=== PATIENT | female | born 1960 | race Caucasian/White ===

== ENCOUNTER → 2016-11-11 | Outpatient (CLI) | payer BC | LOC: MC.RAD 10:40 | DX: Z12.31 Encounter for screening mammogram for malignant neoplasm of breast (principal) ==

== ENCOUNTER → 2017-11-19 | Outpatient (CLI) | payer BC | LOC: MC.RAD 12:58 | DX: Z12.31 Encounter for screening mammogram for malignant neoplasm of breast (principal) ==

== ENCOUNTER → 2018-06-18 | Outpatient (CLI) | payer BC | LOC: COL.RAD 13:20 | DX: N94.89 Other specified conditions associated with female genital organs and menstrual cycle (principal); J98.6 Disorders of diaphragm; Z90.49 Acquired absence of other specified parts of digestive tract | CPT/HCPCS: Q9967 ==

== ENCOUNTER → 2018-11-20 | Outpatient (CLI) | payer BC | LOC: MC.RAD 14:26 | DX: Z12.31 Encounter for screening mammogram for malignant neoplasm of breast (principal) ==

== ENCOUNTER → 2019-06-02 | Outpatient (CLI) | payer BC ==
[~2019-06-02] VITALS: Ht 161.3 cm; Wt 120.2 kg
[~2019-06-02] MED LIST: ABILIFY DISCMEL10 M1 PO; ANTIVERT 25MG25 MG PO; ASPIRIN E.C. 8181 MG PO; BUSPAR10 MG PO; CLARITIN 1010 MG/TAB PO; COENZYME Q1050 MG PO; CYMBALTA 60MG60 MG PO; EFFER-K10 MEQ PO; EPA FISH OIL1 SGL PO; FIBER GUMMIES2.5 GM PO; FLONASEALLERGY NS; GLUCOPHAGE XR500 M1 PO; GLUCOSAMINE 1000 PO; HCTZ 25MG TAB25 MG PO; LIPITOR20 MG PO; MASON NATURAL325 MG PO; MOBIC 7.5MG7.5 MG PO; MULTIPLE VITAMI1 TA5 PO; MULTIVITAMIN SEN PO; NAPROSYN 2250 MG/TAB PO; NATURAL MAGNES200 MG PO; NATURE'S BLEND500 M1 PO; NEURONTIN600 MG/TAB PO; OSCAL 500 TAB500 MG PO; PRILOSEC 20MG20 MG PO; RT ADVAIR 228 DISKUS IH; SINGULAIR 110 MG/TAB PO; STOOL SOFTENER100 M2 PO; VENTOLIN0.09 MG IH; VITAMIN C500 MG PO; VITAMIN D31000 I1 PO; VOLTAREN GEL 1%1 TU TP; ZANTAC 150MG T150 MG PO; ZESTRIL2.5 MG PO
[2019-06-02 08:32] VITALS: BP 156/76; PULSE 92
== END ==
LOC: LIGHT 08:03
DX: E88.81 Metabolic syndrome and other insulin resistance (principal); G47.33 Obstructive sleep apnea (adult) (pediatric); M15.9 Polyosteoarthritis, unspecified; E66.01 Morbid (severe) obesity due to excess calories; Z68.42 Body mass index [BMI] 45.0-49.9, adult; Z71.3 Dietary counseling and surveillance
CPT/HCPCS: G0463

== ENCOUNTER → 2019-06-15 | Outpatient (CLI) | payer BC | LOC: LIGHT 10:27 | DX: E88.81 Metabolic syndrome and other insulin resistance (principal); G47.33 Obstructive sleep apnea (adult) (pediatric); M15.9 Polyosteoarthritis, unspecified; E66.01 Morbid (severe) obesity due to excess calories; Z68.41 Body mass index [BMI] 40.0-44.9, adult; Z71.3 Dietary counseling and surveillance ==

== ENCOUNTER → 2019-06-21 | Outpatient (CLI) | payer BC | LOC: LIGHT 15:57 | DX: E88.81 Metabolic syndrome and other insulin resistance (principal); G47.33 Obstructive sleep apnea (adult) (pediatric); M15.9 Polyosteoarthritis, unspecified; E66.01 Morbid (severe) obesity due to excess calories; Z68.42 Body mass index [BMI] 45.0-49.9, adult; Z71.3 Dietary counseling and surveillance ==

== ENCOUNTER → 2019-07-06 | Outpatient (CLI) | payer BC ==
[~2019-07-06] VITALS: Ht 161.3 cm; Wt 119.7 kg
[2019-07-06 15:45] VITALS: BP 130/86; PULSE 80
== END ==
LOC: LIGHT 15:41
DX: G89.29 Other chronic pain (principal); M15.9 Polyosteoarthritis, unspecified; F32.9 Major depressive disorder, single episode, unspecified; Z68.42 Body mass index [BMI] 45.0-49.9, adult; Z71.3 Dietary counseling and surveillance; E66.01 Morbid (severe) obesity due to excess calories
CPT/HCPCS: G0463

== ENCOUNTER → 2019-12-24 | Outpatient (CLI) | payer BC ==
[~2019-12-24] MED LIST changes: +PHENTERMINE15 MG PO
== END ==
LOC: MC.RAD 11-30 15:00
DX: Z12.31 Encounter for screening mammogram for malignant neoplasm of breast (principal)

== ENCOUNTER → 2020-12-27 | Outpatient (CLI) | payer BC | LOC: MC.RAD 14:16 | DX: Z12.31 Encounter for screening mammogram for malignant neoplasm of breast (principal) ==

== ENCOUNTER → 2022-01-31 | Outpatient (CLI) | payer BC | LOC: MC.RAD 15:57 | DX: Z12.31 Encounter for screening mammogram for malignant neoplasm of breast (principal) ==

== ENCOUNTER → 2022-02-20 | Outpatient (CLI) | payer BC | LOC: COL.RAD 09:37 | DX: R31.9 Hematuria, unspecified (principal) | CPT/HCPCS: Q9967 ==

== ENCOUNTER → 2024-04-29 | Outpatient (CLI) | payer OTHER ==
[~2024-04-29] MED LIST changes: +NORVASC 5MG5 MG/TAB PO; +PEPCID 20MG TAB20 MG PO
== END ==
LOC: MC.RAD 09:08
DX: Z12.31 Encounter for screening mammogram for malignant neoplasm of breast (principal)